=== PATIENT | male | born 1985 | race Caucasian/White ===

== ENCOUNTER 2018-11-04 07:53 | Emergency (ER) | payer SELFPAY ==
--- NOTE | 2018-11-04 08:49 | RAD ---
RADIOGRAPH RIGHT KNEE 4 VIEWS: Date: 11/04/18 HISTORY: 32-year-old male with traumatic right knee pain. FINDINGS: Edema in Hoffa's fat pad. Joint effusion. No fracture or dislocation. No DJD. IMPRESSION: 1. No fracture. 2. Soft tissue edema and joint effusion. POS: CET
[2018-11-04] MEDS ORDERED: Ketorolac Tromethamine 60 MG/2 ML VIAL ONE (08:51)
== END 2018-11-04 09:14 | disposition home or self-care (01) ==
LOC: ERS 07:53
DX: M25.561 Pain in right knee (principal); X50.1XXA Overexertion from prolonged static or awkward postures, initial encounter; Y93.61 Activity, american tackle football
CPT/HCPCS: 96372; J1885

== ENCOUNTER 2018-11-06 16:24 | Emergency (ER) | payer SELFPAY ==
[2018-11-06] MEDS ORDERED: Ketorolac Tromethamine 30 MG/ML VIAL ONE (16:48)
== END 2018-11-06 17:18 | disposition home or self-care (01) ==
LOC: ERS 16:24
DX: M25.561 Pain in right knee (principal)
CPT/HCPCS: 96372; 99283; J1885